=== PATIENT | female | born 1990 ===

== ENCOUNTER → 2016-05-09 | Outpatient (CLI) | payer OTHER | END | disposition home or self-care (01) | LOC: LAB 10:00 | PROVIDERS: ATTEND Podiatrist Foot & Ankle Surgery | DX: L90.5 Scar conditions and fibrosis of skin (principal) ==

== ENCOUNTER → 2016-05-23 | Outpatient (CLI) | payer OTHER | END | disposition home or self-care (01) | LOC: LAB 11:00 | PROVIDERS: ATTEND Podiatrist Foot & Ankle Surgery | DX: Z47.2 Encounter for removal of internal fixation device (principal); L90.5 Scar conditions and fibrosis of skin ==